=== PATIENT | male | born 1980 | race Caucasian/White ===

== ENCOUNTER 2023-02-10 08:53 | Emergency (ER) | payer MEDICAID ==
[~2023-02-10] VITALS: Ht 180.3 cm; Wt 70.8 kg
[2023-02-10 09:00] VITALS: BP 107/83; PULSE 102; RESP 16; TEMP 97.9; O2SAT 98
[2023-02-10] MEDS ORDERED: levoFLOXACIN 750MG TABLET PO ONE (10:10)
[2023-02-10] MEDS ORDERED: CLINDAMYCIN 600mg IN NS 50ML 50 ML IV ONE (10:10)
[2023-02-10] MEDS ORDERED: clindamycin 600mg/D5W 50ml 50 ML IV ONE (10:13)
[2023-02-10] MEDS ORDERED: LEVO-65 PO (10:17)
[2023-02-10] MEDS ORDERED: CLIN-214 PO (10:17)
[2023-02-10] MEDS ORDERED: ketorolac trometh. 30mg/ml inj. IV ONE (10:20)
--- NOTE | 2023-02-10 10:23 | NUR ---
CHARGE NURSE BECKIE CERVANTES NOTIFIED OF IV MEDICATIONS NEEDED.
[2023-02-10] MEDS ORDERED: TETanus/Pertussis (Acell)/Diphther VAC/PF (Tdap-Adult) 0.5ml syringe IMVAC ONE (11:00)
== END 2023-02-10 11:52 | disposition home or self-care (01) ==
LOC: ER 08:54
DX: L03.114 Cellulitis of left upper limb (principal); Z72.89 Other problems related to lifestyle; Z59.00 Homelessness unspecified; Z88.0 Allergy status to penicillin; Z79.2 Long term (current) use of antibiotics
CPT/HCPCS: 73130; 90471; 90715; 96365; 96375; 99284; J1885; J3490; A6449

== ENCOUNTER 2024-07-14 00:03 | Inpatient (IN) | payer MEDICAID ==
[~2024-07-14] VITALS: Ht 182.9 cm; Wt 73.1 kg
[~2024-07-14 00:03] MED LIST: CLIN-214 PO; CLIN-97 PO
[2024-07-14 01:35] LABS: BASOPHILS # (AUTO) 0.1 X10'3 (0-0.2); BASOPHILS % (AUTO) 0.5 % (0-1); EOSINOPHILS # (AUTO) 0.2 X10'3 (0-0.9); EOSINOPHILS % (AUTO) 1.4 % (0-6); HEMATOCRIT 45.1 % (42.0-52.0); HEMOGLOBIN 15.1 g/dl (14.0-17.9); LYMPHOCYTES % (AUTO) 24.4 % (21-51); MEAN CORPUSCULAR HEMOGLOBIN 30.6 PG (27.0-31.0); MEAN CORPUSCULAR HGB CONC 33.5 g/dL (33.0-36.5); MEAN CORPUSCULAR VOLUME 91.4 FL (78-98); MONOCYTES # (AUTO) 0.9 X10'3 (0-0.9); NEUTROPHILS # (AUTO) 8.1 X10'3 (1.8-7.7); NEUTROPHILS % (AUTO) 66.7 % (42-75); PLATELET COUNT 320 X10'3 (140-440); RED BLOOD COUNT 4.93 X10'6 (4.70-6.10); RED CELL DISTRIBUTION WIDTH 13.8 % (11.5-14.5); WHITE BLOOD COUNT 12.1 X10'3 (4.5-11.0)
[2024-07-14 01:38] LABS: BILIRUBIN,URINE NEGATIVE (Neg); CLARITY,URINE CLEAR (Clear); COLOR,URINE YELLOW (Yellow); GLUCOSE, URINE NEGATIVE (Neg); KETONES,URINE 15 mg/dl (Neg); LEUKOCYTE ESTERASE ,URINE NEGATIVE (Neg); NITRITES, URINE NEGATIVE (Neg); OCCULT BLOOD,URINE NEGATIVE (Neg); PROTEIN,URINE NEGATIVE (Neg); UROBILINOGEN,URINE 0.2 E.U/dL (0.2-1.0)
[2024-07-14 02:02] LABS: UA COLLECTION TYPE CLN CATCH MIDSTREAM
[2024-07-14 02:17] LABS: ALBUMIN 3.7 G/DL (3.4-5.0); ANION GAP 8 (8-16); BLOOD UREA NITROGEN 26 MG/DL (7-18); BUN/CREATININE RATIO 29.5 (10.0-20.0); CALCIUM 9.5 MG/DL (8.5-10.1); CHLORIDE 99 MMOL/L (99-107); CREATININE 0.88 MG/DL (0.60-1.10); ETHANOL < 10 MG/DL (<10); GLUCOSE 95 MG/DL (70-104); POTASSIUM 3.9 MMOL/L (3.5-5.1); SODIUM 137 MMOL/L (135-145); THYROID STIMULATING HORMONE 2.43 ulU/ml (0.34-4.50); TOTAL CARBON DIOXIDE 29.8 MMOL/L (24-32); eCRCL 115 ML/MIN; eGFR > 90 ML/MIN
[2024-07-14 02:31] LABS: URINE AMPHETAMINE SCREEN POSITIVE (Neg); URINE BARBITUATE SCREEN NEGATIVE (Neg); URINE BENZODIAZEPINES SCREEN NEGATIVE (Neg); URINE CANNABINOID SCREEN POSITIVE (Neg); URINE COCAINE SCREEN NEGATIVE (Neg); URINE METHADONE SCREEN NEGATIVE (Neg); URINE OPIATE SCREEN NEGATIVE (Neg); URINE PHENCYCLIDINE SCREEN NEGATIVE (Neg)
[2024-07-14] MEDS ORDERED: mupirocin 2% nasal ointment 1gm UD NS SCH (08:00)
[2024-07-14] MEDS ORDERED: clindamycin 150mg capsule PO SCH (08:00)
[2024-07-14] MEDS: clindamycin 150mg capsule PO ONE (08:47)
[2024-07-14] MEDS: mupirocin 2% nasal ointment 1gm UD NS ONE (08:47)
[2024-07-14] MEDS: clindamycin 150mg capsule PO SCH (16:40)
[2024-07-14] MEDS: ondansetron 4mg rapidly disintigrating tab PO STA (16:53)
[2024-07-14] MEDS: loperamide 2mg capsule PO STA (16:53)
[2024-07-14 17:02] VITALS: BP 117/79; PULSE 110; RESP 16; TEMP 99; O2SAT 98
[2024-07-14] MEDS ORDERED: acetaminophen 325mg tablet PO PRN ×2 (18:55)
[2024-07-14] MEDS ORDERED: loperamide 2mg capsule PO PRN (18:55)
[2024-07-14] MEDS ORDERED: magnesium hydroxide 30ml (MOM) UD suspension PO PRN (18:55)
[2024-07-14] MEDS ORDERED: mag hydrox/Alum hydrox/simeth 30ml oral suspension PO PRN (18:55)
[2024-07-14 19:00] VITALS: RESP 16; O2SAT 95
[2024-07-14 20:00] VITALS: BP 115/69; PULSE 107; RESP 16; TEMP 98.6; O2SAT 95
[2024-07-15 07:00] VITALS: RESP 14; O2SAT 96
[2024-07-15 07:48] VITALS: BP 114/76; PULSE 72; RESP 14; TEMP 98.6; O2SAT 96
[2024-07-15 08:25] LABS: THYROID STIMULATING HORMONE 1.48 ulU/ml (0.34-4.50)
[2024-07-15 08:40] LABS: HEMOGLOBIN A1C 5.6 % (4.5-6.2)
[2024-07-15] MEDS: haloperidol 5mg tablet PO ONE (09:56)
[2024-07-15] MEDS: LORazepam 1 MG tablet PO ONE (09:56)
[2024-07-15] MEDS: diphenhydrAMINE 25mg capsule PO ONE (09:56)
[2024-07-15] MEDS: loratadine 10mg tablet PO SCH (09:58)
[2024-07-15] MEDS: aripiprazole 5mg tablet PO SCH (09:58)
[2024-07-15] MEDS: hydrOXYzine 25 MG tablet PO SCH (09:58)
[2024-07-15 19:00] VITALS: RESP 20; O2SAT 98
[2024-07-15 20:00] VITALS: BP 125/77; PULSE 77; RESP 20; TEMP 97.8; O2SAT 96
[2024-07-15] MEDS: mupirocin 2% ointment 22GM TP SCH (20:00)
[2024-07-16 07:00] VITALS: RESP 14; O2SAT 100
[2024-07-16 08:00] VITALS: BP 127/73; PULSE 81; RESP 14; TEMP 98.2; O2SAT 100
[2024-07-16] MEDS ORDERED: NICOTINE POLACRILEX 2 MG LOZENGE BC PRN (08:05)
[2024-07-16] MEDS: nicotine 21mg patch - 24 hr TD SCH (08:13)
[2024-07-16 19:00] VITALS: RESP 18; O2SAT 97
[2024-07-16 20:00] VITALS: BP 105/66; PULSE 87; RESP 18; TEMP 97.7; O2SAT 97
[2024-07-17 07:30] VITALS: BP 115/89; PULSE 112; RESP 16; TEMP 96.9; O2SAT 100
== END 2024-07-17 09:43 | disposition left against medical advice (07) | DRG 760 ==
LOC: ER 00:04 → ADULT MH 16:35 → UNDOADMIN 16:35 → ADULT MH 18:03
PROVIDERS: ADMIT Psychiatry & Neurology Psychiatry; ATTEND Psychiatry & Neurology Psychiatry
PROC: GZHZZZZ Group Psychotherapy (ICD-10-PCS; 2024-07-15)
PROC: GZ56ZZZ Individual Psychotherapy, Supportive (ICD-10-PCS; principal; 2024-07-17)
DX: F22 Delusional disorders (principal); R45.851 Suicidal ideations; F15.10 Other stimulant abuse, uncomplicated; Z20.822 Contact with and (suspected) exposure to COVID-19; Z53.21 Procedure and treatment not carried out due to patient leaving prior to being seen by health care provider; F41.9 Anxiety disorder, unspecified; F32.A Depression, unspecified; Z79.899 Other long term (current) drug therapy; Z59.00 Homelessness unspecified; Z88.0 Allergy status to penicillin
CPT/HCPCS: 36415; 80048; 80305; 80320; 81003; 83036; 84443; 85025; 87081; 87811; 99285; Q0177